=== PATIENT | female | born 1985 | race Caucasian/White ===

== ENCOUNTER 2023-06-03 19:19 | Emergency (ER) | payer BC ==
[~2023-06-03] VITALS: Ht 182.9 cm; Wt 111.8 kg
[~2023-06-03 19:19] MED LIST: OVRAL PO
[2023-06-03 19:28] VITALS: TEMP 98.1
[2023-06-03 20:11] LABS: BILIRUBIN,URINE NEGATIVE (Neg); CLARITY,URINE CLEAR (Clear); COLOR,URINE STRAW (Yellow); GLUCOSE, URINE NEGATIVE (Neg); KETONES,URINE NEGATIVE (Neg); LEUKOCYTE ESTERASE ,URINE NEGATIVE (Neg); NITRITES, URINE NEGATIVE (Neg); OCCULT BLOOD,URINE NEGATIVE (Neg); PH,URINE 7.5 (4.8-8.0); PROTEIN,URINE NEGATIVE (Neg); URINE HCG NEGATIVE (NEG); UROBILINOGEN,URINE 0.2 E.U/dL (0.2-1.0)
[2023-06-03 20:22] LABS: UA COLLECTION TYPE CLN CATCH MIDSTREAM
[2023-06-03] MEDS ORDERED: ketorolac trometh inj. 60 MG/2 ML VIAL IM ONE (20:35)
[2023-06-03] MEDS ORDERED: METH-798 PO (21:05)
[2023-06-03] MEDS ORDERED: LIDO700A32 TOP (21:05)
[2023-06-03] MEDS ORDERED: IBUP-1985 PO (21:05)
[2023-06-03] MEDS: ketorolac tromethamine 15mg/ml inj. IM ONE (21:33)
[2023-06-03 21:35] VITALS: BP 150/80; PULSE 80; RESP 15; O2SAT 100
== END 2023-06-03 21:41 | disposition home or self-care (01) ==
LOC: ER 19:21
DX: M54.59 Other low back pain (principal); Z88.0 Allergy status to penicillin; Z79.899 Other long term (current) drug therapy
CPT/HCPCS: 81003; 81025; 96372; 99283; J1885

== ENCOUNTER 2024-02-26 07:44 | Emergency (ER) | payer BC ==
[~2024-02-26] VITALS: Ht 182.9 cm; Wt 86.2 kg
[~2024-02-26 07:44] MED LIST changes: +IBUP-1985 PO; +LIDO700A32 TOP; +METH-798 PO
[2024-02-26 08:21] LABS: URINE HCG NEGATIVE (NEG)
[2024-02-26 08:28] LABS: BILIRUBIN,URINE NEGATIVE (Neg); CLARITY,URINE CLEAR (Clear); COLOR,URINE YELLOW (Yellow); GLUCOSE, URINE NEGATIVE (Neg); KETONES,URINE NEGATIVE (Neg); LEUKOCYTE ESTERASE ,URINE NEGATIVE (Neg); NITRITES, URINE NEGATIVE (Neg); OCCULT BLOOD,URINE NEGATIVE (Neg); PROTEIN,URINE NEGATIVE (Neg); UROBILINOGEN,URINE 0.2 E.U/dL (0.2-1.0)
[2024-02-26 08:29] LABS: UA COLLECTION TYPE CLN CATCH MIDSTREAM
[2024-02-26] MEDS ORDERED: HYDROmorphone inj. 0.5 MG/0.5 ML DISP.SYRIN IV ONE (08:35)
[2024-02-26] MEDS: normal saline 1000ml 1,000 ML IV ONE (09:22)
[2024-02-26 09:35] LABS: ALANINE AMINOTRANSFERASE 37 U/L (12-78); ALBUMIN 3.9 G/DL (3.4-5.0); ALKALINE PHOSPHATASE 54 IU/L (46-116); ASPARTATE AMINO TRANSFERASE 26 U/L (10-37); BILIRUBIN,TOTAL 0.8 MG/DL (0.1-1.0); BLOOD UREA NITROGEN 9 MG/DL (7-18); CALCIUM 8.8 MG/DL (8.5-10.1); CREATININE 0.75 MG/DL (0.40-0.90); GLUCOSE 84 MG/DL (70-104); LIPASE 63 U/L (16-77); TOTAL CARBON DIOXIDE 22.6 MMOL/L (24-32); TOTAL PROTEIN 7.9 G/DL (6.4-8.2); eCRCL 116 ML/MIN; eGFR 86 ML/MIN
[2024-02-26 09:48] LABS: ANION GAP 10 (8-16); CHLORIDE 104 MMOL/L (99-107); SODIUM 137 MMOL/L (135-145)
[2024-02-26 10:23] VITALS: TEMP 99
[2024-02-26 10:29] LABS: HEMATOCRIT 31.1 % (35.0-45.0); HEMOGLOBIN 9.8 g/dl (12.0-16.0); MEAN CORPUSCULAR HGB CONC 31.6 g/dL (33.0-36.5); MONOCYTES # (AUTO) 0.4 X10'3 (0-0.9)
[2024-02-26 10:31] LABS: BASOPHILS % (AUTO) 0.8 % (0-1); EOSINOPHILS % (AUTO) 0.7 % (0-6); LYMPHOCYTES # (AUTO) 0.6 X10'3 (1.1-4.8); LYMPHOCYTES % (AUTO) 10.4 % (21-51); MEAN CORPUSCULAR HEMOGLOBIN 23.2 PG (27.0-31.0); MEAN CORPUSCULAR VOLUME 73.4 FL (78-98); MEAN PLATELET VOLUME 8.2 FL (7.4-10.4); MONOCYTES % (AUTO) 8.3 % (2-12); NEUTROPHILS # (AUTO) 4.3 X10'3 (1.8-7.7); NEUTROPHILS % (AUTO) 79.8 % (42-75); RED BLOOD COUNT 4.24 X10'6 (4.20-5.60); RED CELL DISTRIBUTION WIDTH 17.9 % (11.5-14.5); WHITE BLOOD COUNT 5.4 X10'3 (4.5-11.0)
[2024-02-26 10:40] LABS: PLATELET COUNT 163 X10'3 (140-440)
[2024-02-26] MEDS: acetaminophen 1,000mg/100ml IV 100 ML IV ONE (10:45)
[2024-02-26] MEDS: ketorolac trometh 30MG/ML vial 30 MG/ML VIAL IV ONE (10:46)
[2024-02-26 10:50] VITALS: BP 133/80; PULSE 92; RESP 15; O2SAT 100
[2024-02-26] MEDS ORDERED: iohexol 350MG/ML 100ml bottle IV ONE (10:55)
[2024-02-26] MEDS ORDERED: iohexol 300mg/ml 100ml inj. ONE (10:56)
[2024-02-26 11:49] LABS: ANISOCYTOSIS 2+; HYPOCHROMASIA 1+; MICROCYTOSIS 1+; PLATELET ESTIMATE NORMAL
[2024-02-29 13:10] LABS: CHLAMYDIA TRACHOMATIS, NAA Negative (Negative)
== END 2024-02-26 12:18 | disposition home or self-care (01) ==
LOC: ER 07:44
DX: N83.209 Unspecified ovarian cyst, unspecified side (principal); Z88.0 Allergy status to penicillin; Z88.1 Allergy status to other antibiotic agents; Z20.822 Contact with and (suspected) exposure to COVID-19
CPT/HCPCS: 36415; 74177; 80053; 81003; 81025; 83690; 85008; 85025; 87491; 87502; 87503; 87591; 87811; 96361; 96374; 96375; 99285; J0131; J1885; J7030; Q9967